=== PATIENT | male | born 1985 | race American Indian/Alaskan Native ===

== ENCOUNTER 2021-10-08 06:07 | Inpatient (IN) ==
[2021-10-08] MEDS ORDERED: ERTAPENEM 1,000 MG in SODIUM CHLORIDE 0.9% 100 ML IV ONE (06:30)
[2021-10-08] MEDS ORDERED: ALVIMOPAN 12 MG CAPSULE PO ONE (06:30)
[2021-10-08] MEDS ORDERED: FAMOTIDINE 20 MG TABLET ONE (06:31)
[2021-10-08] MEDS ORDERED: ACETAMINOPHEN 500 MG TABLET ONE (06:31)
[2021-10-08] MEDS ORDERED: GABAPENTIN 400 MG CAPSULE ONE (06:31)
[2021-10-08] MEDS: LACTATED RINGERS 1,000 ML IV SCH ×3 (06:35→16:05)
[2021-10-08] MEDS ORDERED: BUPIVACAINE 0.5% 50 ML VIAL ONE (06:41)
[2021-10-08] MEDS ORDERED: DEXAMETHASONE 10 MG/1 ML VIAL ONE (06:41)
[2021-10-08] MEDS ORDERED: SUCCINYLCHOLINE 200 MG/10 ML VIAL ONE (06:43)
[2021-10-08] MEDS ORDERED: MIDAZOLAM 2 MG/2 ML VIAL ONE ×2 (06:43→09:55)
[2021-10-08] MEDS ORDERED: ONDANSETRON 4 MG/2 ML VIAL ONE ×2 (06:43→10:51)
[2021-10-08] MEDS ORDERED: LIDOCAINE 2% 5 ML VIAL ONE (06:43)
[2021-10-08] MEDS ORDERED: ROCURONIUM 50 MG/5 ML VIAL IV ONE ×2 (06:43→08:14)
[2021-10-08] MEDS ORDERED: DEXMEDETOMIDINE 200 MCG/2 ML VIAL ONE (06:43)
[2021-10-08] MEDS ORDERED: propofoL 200 MG/20 ML VIAL IV ONE (06:43)
[2021-10-08] MEDS ORDERED: KETAMINE 500 MG/10 ML VIAL ONE (06:43)
[2021-10-08] MEDS ORDERED: SEVOFLURANE 1 UNIT/15 MINUTE INH ONE ×2 (08:03→10:12)
[2021-10-08] MEDS ORDERED: GLYCOPYRROLATE 0.4 MG/2 ML VIAL ONE (08:10)
[2021-10-08] MEDS ORDERED: hydrALAZINE 20 MG/1 ML VIAL ONE (08:10)
[2021-10-08] MEDS ORDERED: TISSUE ADHESIVE 1 EACH APPLICATOR TOP ONE (08:22)
[2021-10-08] MEDS ORDERED: INDOCYANINE GREEN 25 MG VIAL IV ONE (08:23)
[2021-10-08] MEDS ORDERED: NEOSTIGMINE 10 MG/10 ML VIAL ONE (10:01)
[2021-10-08] MEDS ORDERED: LACTATED RINGERS 1,000 ML IV ONE (10:02)
[2021-10-08] MEDS ORDERED: MEPERIDINE 25 MG/1 ML VIAL IV PRN (10:49)
[2021-10-08] MEDS ORDERED: HYDROmorphone 1 MG/1 ML SYRINGE IV PRN (10:49)
[2021-10-08] MEDS ORDERED: ONDANSETRON 4 MG/2 ML VIAL IV PRN (10:49)
[2021-10-08] MEDS ORDERED: MEPERIDINE 25 MG/1 ML VIAL ONE (10:51)
[2021-10-08 12:34] LABS: Basophils % 0.1 % (0.0-0.8); Hematocrit 42.8 VOL% (42.0-52.0); Hemoglobin 14.1 GM/DL (14.0-18.0); Immature Granulocytes % 0.5 %; Immature Granulocytes Absolute 0.07 #; Lymphocytes # 0.7 10*3/uL (1.4-4.0); Lymphocytes % 4.6 % (21.2-54.2); Mean Corpuscular HGB Conc 32.9 GM/DL (32-36); Mean Corpuscular Volume 89.4 FL (87-102); Mean Platelet Volume 10.2 FL (9.6-12.0); Monocytes # 0.2 10*3/uL (0.11-0.8); Monocytes % 1.5 % (1.7-12.7); Neutrophils % 93.3 % (38.7-73.9); Platelet Count 209 T/CUMM (130-400); Red Blood Count 4.79 MC/CUMM (3.8-5.5); Red Cell Distribution Width 13.6 % (9.3-17.3); White Blood Count 14.9 T/CUMM (4-12)
[2021-10-08 12:53] LABS: Calcium 8.1 MG/DL (8.5-10.1); Osmolality,Calculated 278.5 MOS/KG (273-304); Potassium 3.8 MMOL/L (3.5-5.1)
[2021-10-08 12:55] LABS: Lymphocytes 1 % (20-55); Total Cells Counted 100
[2021-10-08 12:58] LABS: Burr Cells Slight
[2021-10-08 13:04] LABS: Ovalocytes Slight; Platelet Estimate Normal
[2021-10-08] MEDS: KETOROLAC 30 MG/1 ML VIAL IV SCH ×2 (13:16→17:34)
[2021-10-08] MEDS: HYDROmorphone 1 MG/1 ML SYRINGE IV PRN ×2 (14:21→21:06)
[2021-10-08] MEDS: ALVIMOPAN 12 MG CAPSULE PO SCH (21:04)
[2021-10-09] MEDS: KETOROLAC 30 MG/1 ML VIAL IV SCH ×2 (00:05→05:30)
[2021-10-09] MEDS: LACTATED RINGERS 1,000 ML IV SCH ×2 (00:10→08:11)
[2021-10-09 05:44] LABS: Basophils % 0.1 % (0.0-0.8); Hematocrit 30.1 VOL% (42.0-52.0); Immature Granulocytes % 0.7 %; Lymphocytes # 1.1 10*3/uL (1.4-4.0); Mean Corpuscular HGB Conc 33.9 GM/DL (32-36); Mean Corpuscular Volume 87.2 FL (87-102); Mean Platelet Volume 10.5 FL (9.6-12.0); Monocytes # 1.3 10*3/uL (0.11-0.8); Monocytes % 9.5 % (1.7-12.7); Neutrophils % 81.7 % (38.7-73.9); Platelet Count 212 T/CUMM (130-400); Red Blood Count 3.45 MC/CUMM (3.8-5.5); Red Cell Distribution Width 13.6 % (9.3-17.3); White Blood Count 14.1 T/CUMM (4-12)
[2021-10-09 05:46] LABS: Hemoglobin 10.2 GM/DL (14.0-18.0)
[2021-10-09 05:52] LABS: Calcium 7.8 MG/DL (8.5-10.1); Osmolality,Calculated 275.8 MOS/KG (273-304); Potassium 3.8 MMOL/L (3.5-5.1)
[2021-10-09 08:01] VITALS: BP 116/61
[2021-10-09] MEDS: ALVIMOPAN 12 MG CAPSULE PO SCH (08:11)
[2021-10-09] MEDS: HYDROmorphone 1 MG/1 ML SYRINGE IV PRN (08:12)
[2021-10-09] MEDS ORDERED: ENOXAPARIN 40 MG/0.4 ML SYRINGE SUBCUT SCH (09:00)
== END 2021-10-09 11:32 | disposition home or self-care (01) | DRG 331 ==
LOC: N.OR 06:07 → N.SDSINP 06:08 → N.3E 11:34
PROVIDERS: ADMIT Surgery; ATTEND Surgery

== ENCOUNTER 2021-10-17 11:30 | Inpatient (IN) ==
[2021-10-17] MEDS ORDERED: MORPHINE 2 MG/1 ML SYRINGE IV STA (11:50)
[2021-10-17] MEDS ORDERED: ONDANSETRON 4 MG/2 ML VIAL IV ONE (11:50)
[2021-10-17] MEDS ORDERED: ACETAMINOPHEN 325 MG TABLET PO PRN (12:11)
[2021-10-17 12:24] LABS: Basophils % 0.3 % (0.0-0.8); Eosinophils # 0.3 10*3/uL (0.0-0.87); Eosinophils % 2.8 % (0.00-10.9); Hematocrit 30.1 VOL% (42.0-52.0); Hemoglobin 9.8 GM/DL (14.0-18.0); Immature Granulocytes % 0.4 %; Immature Granulocytes Absolute 0.04 #; Lymphocytes % 9.9 % (21.2-54.2); Mean Corpuscular HGB Conc 32.6 GM/DL (32-36); Mean Corpuscular Volume 90.7 FL (87-102); Monocytes # 0.7 10*3/uL (0.11-0.8); Monocytes % 7.1 % (1.7-12.7); Neutrophils % 79.5 % (38.7-73.9); Platelet Count 352 T/CUMM (130-400); Red Blood Count 3.32 MC/CUMM (3.8-5.5); Red Cell Distribution Width 14.1 % (9.3-17.3); White Blood Count 10.1 T/CUMM (4-12)
[2021-10-17] MEDS: PANTOPRAZOLE 40 MG TABLET PO SCH (12:30)
[2021-10-17 12:35] LABS: PT Patient Result 10.6 SECS (10.5-12.0); Partial Thromboplastin Time 34.5 SECS (23.7-32.9)
[2021-10-17 12:50] LABS: Albumin 3.2 G/DL (3.4-5.0); Bilirubin,Total 2.1 MG/DL (0.20-1.00); Calcium 8.7 MG/DL (8.5-10.1); Osmolality,Calculated 278.5 MOS/KG (273-304); Potassium 3.6 MMOL/L (3.5-5.1); Total Protein 6.8 G/DL (6.4-8.2)
[2021-10-17] MEDS ORDERED: LORazepam 2 MG/1 ML VIAL IV STA (13:53)
[2021-10-17] MEDS ORDERED: LORazepam 1 MG TABLET PO STA (13:56)
[2021-10-17] MEDS: MORPHINE 2 MG/1 ML SYRINGE IV PRN ×2 (14:00→22:16)
[2021-10-17] MEDS ORDERED: fentaNYL 100 MCG/2 ML VIAL ONE (14:40)
[2021-10-17] MEDS ORDERED: MIDAZOLAM 2 MG/2 ML VIAL ONE (14:40)
[2021-10-17] MEDS: PIPERACILLIN/TAZOBACTAM 3,375 MG in SODIUM CHLORIDE 0.9% 100 ML IV SCH (20:38)
[2021-10-18] MEDS: PIPERACILLIN/TAZOBACTAM 3,375 MG in SODIUM CHLORIDE 0.9% 100 ML IV SCH ×3 (04:56→20:51)
[2021-10-18] MEDS: MORPHINE 2 MG/1 ML SYRINGE IV PRN ×3 (05:55→19:34)
[2021-10-18] MEDS: ONDANSETRON 4 MG/2 ML VIAL IV PRN ×2 (06:00→16:32)
[2021-10-18 08:09] LABS: Basophils # 0.1 10*3/uL (0.0-0.2); Basophils % 0.5 % (0.0-0.8); Eosinophils # 0.7 10*3/uL (0.0-0.87); Eosinophils % 6.4 % (0.00-10.9); Hemoglobin 9.4 GM/DL (14.0-18.0); Immature Granulocytes % 0.4 %; Immature Granulocytes Absolute 0.04 #; Lymphocytes # 1.1 10*3/uL (1.4-4.0); Lymphocytes % 10.7 % (21.2-54.2); Mean Corpuscular HGB Conc 32.4 GM/DL (32-36); Mean Corpuscular Volume 89.8 FL (87-102); Mean Platelet Volume 8.6 FL (9.6-12.0); Monocytes # 0.7 10*3/uL (0.11-0.8); Platelet Count 337 T/CUMM (130-400); Red Blood Count 3.23 MC/CUMM (3.8-5.5); Red Cell Distribution Width 13.8 % (9.3-17.3); White Blood Count 10.5 T/CUMM (4-12)
[2021-10-18 08:27] LABS: Albumin 2.9 G/DL (3.4-5.0); Bilirubin,Total 1.6 MG/DL (0.20-1.00); Calcium 8.5 MG/DL (8.5-10.1); Osmolality,Calculated 275.8 MOS/KG (273-304); Potassium 3.9 MMOL/L (3.5-5.1); Total Protein 6.2 G/DL (6.4-8.2)
[2021-10-18] MEDS: PANTOPRAZOLE 40 MG TABLET PO SCH (09:08)
[2021-10-18] MEDS: TAMSULOSIN 0.4 MG CAPSULE PO SCH ×2 (13:18→20:51)
[2021-10-18] MEDS: LACTATED RINGERS 1,000 ML IV SCH (16:32)
[2021-10-19] MEDS: ONDANSETRON 4 MG/2 ML VIAL IV PRN ×2 (00:38→08:28)
[2021-10-19] MEDS: MORPHINE 2 MG/1 ML SYRINGE IV PRN (02:38)
[2021-10-19] MEDS: LACTATED RINGERS 1,000 ML IV SCH ×2 (04:30→04:46)
[2021-10-19] MEDS: PIPERACILLIN/TAZOBACTAM 3,375 MG in SODIUM CHLORIDE 0.9% 100 ML IV SCH (04:45)
[2021-10-19] MEDS: PANTOPRAZOLE 40 MG TABLET PO SCH (08:28)
[2021-10-19] MEDS: TAMSULOSIN 0.4 MG CAPSULE PO SCH (08:28)
[2021-10-19 11:38] VITALS: BP 139/71
== END 2021-10-19 15:30 | disposition home or self-care (01) | DRG 921 ==
LOC: EDUNIT# → N.ED 11:30 → N.EDINP 12:09 → N.5E 13:18
PROVIDERS: ADMIT Surgery; ATTEND Surgery

== ENCOUNTER 2021-10-23 00:49 | Inpatient (IN) ==
[2021-10-23 03:28] LABS: Basophils # 0.1 10*3/uL (0.0-0.2); Basophils % 0.3 % (0.0-0.8); Eosinophils # 0.1 10*3/uL (0.0-0.87); Eosinophils % 0.8 % (0.00-10.9); Hematocrit 34.4 VOL% (42.0-52.0); Hemoglobin 10.9 GM/DL (14.0-18.0); Immature Granulocytes % 0.8 %; Immature Granulocytes Absolute 0.14 #; Lymphocytes # 1.3 10*3/uL (1.4-4.0); Lymphocytes % 7.6 % (21.2-54.2); Mean Corpuscular HGB Conc 31.7 GM/DL (32-36); Mean Corpuscular Volume 90.1 FL (87-102); Mean Platelet Volume 8.9 FL (9.6-12.0); Monocytes # 1.9 10*3/uL (0.11-0.8); Monocytes % 11.1 % (1.7-12.7); Neutrophils % 79.4 % (38.7-73.9); Platelet Count 475 T/CUMM (130-400); Red Blood Count 3.82 MC/CUMM (3.8-5.5); Red Cell Distribution Width 13.8 % (9.3-17.3); White Blood Count 17.2 T/CUMM (4-12)
[2021-10-23 03:41] LABS: Albumin 3.2 G/DL (3.4-5.0); Bilirubin,Total 1.6 MG/DL (0.20-1.00); Calcium 9.1 MG/DL (8.5-10.1); Osmolality,Calculated 267.2 MOS/KG (273-304); Potassium 3.8 MMOL/L (3.5-5.1); Total Protein 7.6 G/DL (6.4-8.2)
[2021-10-23 04:01] LABS: Mucus,Urine Many /LPF (Occasional); Squamous Epithelial Cell,Urine Occasional /HPF (0-10)
[2021-10-23 04:04] LABS: Bilirubin,Urine Moderate mg/dL (Negative); Glucose,Urine (UA) Negative (Negative); Ketones,Urine Trace mg/dL (Negative); Nitrite,Urine Positive (Negative); Protein,Urine 30 mg/dL (Negative); Urine Appearance Clear (Clear); Urine Color Yellow (Yellow); Urine pH 5.5 (4.5-8.0)
[2021-10-23 04:05] LABS: Blood, Urine Negative (Negative)
[2021-10-23] MEDS ORDERED: PIPERACILLIN/TAZOBACTAM 3,375 MG in SODIUM CHLORIDE 0.9% 100 ML IV STA (04:54)
[2021-10-23] MEDS ORDERED: ACETAMINOPHEN 325 MG TABLET PO PRN (05:13)
[2021-10-23] MEDS ORDERED: ONDANSETRON 4 MG/2 ML VIAL IV PRN (05:13)
[2021-10-23] MEDS ORDERED: IBUPROFEN 400 MG TABLET PO PRN (05:13)
[2021-10-23] MEDS ORDERED: MORPHINE 2 MG/1 ML SYRINGE IV PRN (05:13)
[2021-10-23] MEDS: DEXTROSE 5% NACL 0.45% 1,000 ML IV SCH ×2 (06:22→21:07)
[2021-10-23] MEDS: PANTOPRAZOLE 40 MG VIAL IV SCH (11:00)
[2021-10-23] MEDS: HYDROmorphone 1 MG/1 ML SYRINGE IV PRN ×4 (11:30→21:21)
[2021-10-23] MEDS: PIPERACILLIN/TAZOBACTAM 3,375 MG in SODIUM CHLORIDE 0.9% 100 ML IV SCH ×2 (13:57→21:07)
[2021-10-24] MEDS: HYDROmorphone 1 MG/1 ML SYRINGE IV PRN ×7 (00:27→23:03)
[2021-10-24] MEDS: PIPERACILLIN/TAZOBACTAM 3,375 MG in SODIUM CHLORIDE 0.9% 100 ML IV SCH ×3 (05:38→21:33)
[2021-10-24 07:12] LABS: Basophils # 0.1 10*3/uL (0.0-0.2); Basophils % 0.4 % (0.0-0.8); Eosinophils # 0.3 10*3/uL (0.0-0.87); Eosinophils % 2.2 % (0.00-10.9); Hematocrit 30.2 VOL% (42.0-52.0); Hemoglobin 9.8 GM/DL (14.0-18.0); Immature Granulocytes % 0.6 %; Immature Granulocytes Absolute 0.09 #; Lymphocytes # 1.2 10*3/uL (1.4-4.0); Lymphocytes % 8.2 % (21.2-54.2); Mean Corpuscular HGB Conc 32.5 GM/DL (32-36); Mean Corpuscular Volume 87.3 FL (87-102); Mean Platelet Volume 8.8 FL (9.6-12.0); Monocytes # 1.5 10*3/uL (0.11-0.8); Monocytes % 10.4 % (1.7-12.7); Neutrophils % 78.2 % (38.7-73.9); Platelet Count 400 T/CUMM (130-400); Red Blood Count 3.46 MC/CUMM (3.8-5.5); Red Cell Distribution Width 13.8 % (9.3-17.3); White Blood Count 14.1 T/CUMM (4-12)
[2021-10-24] MEDS: DEXTROSE 5% NACL 0.45% 1,000 ML IV SCH ×3 (07:18→13:17)
[2021-10-24 07:27] LABS: Calcium 8.4 MG/DL (8.5-10.1); Potassium 3.7 MMOL/L (3.5-5.1)
[2021-10-24] MEDS: PANTOPRAZOLE 40 MG VIAL IV SCH (09:21)
[2021-10-25] MEDS: HYDROmorphone 1 MG/1 ML SYRINGE IV PRN ×3 (02:57→22:18)
[2021-10-25] MEDS: PIPERACILLIN/TAZOBACTAM 3,375 MG in SODIUM CHLORIDE 0.9% 100 ML IV SCH ×2 (05:18→16:51)
[2021-10-25] MEDS: DEXTROSE 5% NACL 0.45% 1,000 ML IV SCH ×3 (05:19→18:47)
[2021-10-25 09:07] LABS: INR 1.1; PT Patient Result 12.1 SECS (10.5-12.0)
[2021-10-25] MEDS: oxyCODONE/ACETAMINOPHEN 5-325 MG TABLET PO PRN ×2 (10:00→16:50)
[2021-10-25] MEDS ORDERED: DIAZEPAM 5 MG TABLET PO ONE (11:24)
[2021-10-25] MEDS ORDERED: MIDAZOLAM 2 MG/2 ML VIAL IV ONE (11:24)
[2021-10-25] MEDS ORDERED: fentaNYL 100 MCG/2 ML VIAL IV ONE (11:24)
[2021-10-25] MEDS ORDERED: SODIUM CHLORIDE 0.45% 1,000 ML IV SCH (11:30)
[2021-10-25] MEDS: PANTOPRAZOLE 40 MG VIAL IV SCH (11:56)
[2021-10-26] MEDS: DEXTROSE 5% NACL 0.45% 1,000 ML IV SCH ×2 (00:25→05:19)
[2021-10-26] MEDS: oxyCODONE/ACETAMINOPHEN 5-325 MG TABLET PO PRN ×3 (01:15→12:13)
[2021-10-26] MEDS: PIPERACILLIN/TAZOBACTAM 3,375 MG in SODIUM CHLORIDE 0.9% 100 ML IV SCH ×2 (01:50→08:21)
[2021-10-26] MEDS: HYDROmorphone 1 MG/1 ML SYRINGE IV PRN ×2 (06:02→09:00)
[2021-10-26 07:22] LABS: Basophils % 0.4 % (0.0-0.8); Eosinophils # 0.7 10*3/uL (0.0-0.87); Eosinophils % 7.1 % (0.00-10.9); Hematocrit 29.6 VOL% (42.0-52.0); Hemoglobin 9.7 GM/DL (14.0-18.0); Immature Granulocytes % 0.4 %; Immature Granulocytes Absolute 0.04 #; Lymphocytes # 1.2 10*3/uL (1.4-4.0); Lymphocytes % 12.5 % (21.2-54.2); Mean Corpuscular HGB Conc 32.8 GM/DL (32-36); Mean Corpuscular Volume 86.3 FL (87-102); Mean Platelet Volume 8.7 FL (9.6-12.0); Monocytes # 0.8 10*3/uL (0.11-0.8); Monocytes % 8.2 % (1.7-12.7); Neutrophils % 71.4 % (38.7-73.9); Platelet Count 393 T/CUMM (130-400); Red Blood Count 3.43 MC/CUMM (3.8-5.5); White Blood Count 9.9 T/CUMM (4-12)
[2021-10-26 07:58] LABS: Albumin 2.5 G/DL (3.4-5.0); Bilirubin,Total 1.4 MG/DL (0.20-1.00); Calcium 8.5 MG/DL (8.5-10.1); Osmolality,Calculated 274.7 MOS/KG (273-304); Total Protein 6.6 G/DL (6.4-8.2)
[2021-10-26] MEDS: PANTOPRAZOLE 40 MG VIAL IV SCH (08:18)
[2021-10-26 10:37] VITALS: BP 123/72
== END 2021-10-26 13:25 | disposition home or self-care (01) | DRG 862 ==
LOC: N.ED 00:49 → N.EDINP 05:12 → N.TELEN 12:28
PROVIDERS: ADMIT Surgery; ATTEND Student in an Organized Health Care Education/Training Program